=== PATIENT | female | born 1935 | race Caucasian/White ===

== ENCOUNTER 2022-11-09 14:17 | Inpatient (IN) | payer MEDICARE, OTHER ==
[~2022-11-09] VITALS: Ht 157.5 cm; Wt 52.2 kg
[2022-11-09] MEDS ORDERED: IV NORMAL SALINE 500 ML BAG IV ONE (14:30)
--- NOTE | 2022-11-09 14:42 | NUR ---
Noted pt has healing scabs on Rt ankle, and multiple ecchymosis on RUE, LUE lymphedema.
[2022-11-09 15:00] LABS: HEMATOCRIT 37.1 % (31.2-41.9); MEAN CORPUSCULAR HEMOGLOBIN 30.8 uug (24.7-32.8); MEAN CORPUSCULAR VOLUME 97.6 fL (75.5-95.3); PLATELET COUNT (AUTO) 195 K/uL (179-408)
[2022-11-09 15:10] LABS: CARBON DIOXIDE 30 mmol/L (21-32); CHLORIDE 102 mmol/L (98-107); CREATININE 1.9 mg/dL (0.6-1.3); GLUCOSE 93 mg/dL (74-106); POTASSIUM 3.9 mmol/L (3.5-5.1); UREA NITROGEN, BLOOD 39 mg/dL (7-18)
--- NOTE | 2022-11-09 15:22 | NUR ---
Received call from lab, lactic acid = 3.0. made aware.
[2022-11-09 15:23] LABS: ALANINE AMINOTRANSFERASE 18 U/L (14-59); ALKALINE PHOSPHATASE 99 U/L (50-136); ASPARTATE AMINOTRANSFERASE 18 U/L (15-37); BILIRUBIN,DIRECT 0.4 mg/dL (0.0-0.2); BILIRUBIN,TOTAL 0.8 mg/dL (0.2-1.0); TOTAL PROTEIN, SERUM 6.2 g/dL (6.4-8.2)
[2022-11-09] MEDS ORDERED: CEFTRIAXONE 1 G in IV DEXTROSE 5% 50 ML IV ONE (15:30)
[2022-11-09] MEDS ORDERED: IV NORMAL SALINE 1000 ML BAG IV ONE (15:30)
[2022-11-09] MEDS ORDERED: CEFTRIAXONE /D5W 50ML IVPB **ER PYXIS IV ONE (15:35)
--- NOTE | 2022-11-09 17:25 | NUR ---
Dr Modi insert a Rapid Rhino to Lt nares, pt tolorated moderatly.
[2022-11-09] MEDS ORDERED: ONDANSETRON 4 MG/2 ML VIAL ONE (17:26)
[2022-11-09] MEDS ORDERED: ONDANSETRON 4 MG/2 ML VIAL IV ONE (17:30)
--- NOTE | 2022-11-09 17:33 | NUR ---
Reposition for comfort, pt's son at the bedside.
[2022-11-09 19:20] LABS: *BILIRUBIN,URIN NEGATIVE (NEGATIVE); *BLOOD, URINE NEGATIVE (NEGATIVE); *CLARITY,URINE CLEAR (CLEAR); *COLOR,URINE YELLOW (YELLOW); *KETONES,URINE NEGATIVE (NEGATIVE); *UROBILINOGEN,URINE 0.2 E.U./dl (NORMAL); LEUKOCYTE ESTERASE ,URINE NEGATIVE (NEGATIVE); NITRITE, URINE NEGATIVE (NEGATIVE); PH,URINE 5.5 (5.0-8.0); UGLUCOSE NEGATIVE (NEGATIVE)
--- NOTE | 2022-11-09 20:45 | NUR ---
Report given to Jayesh GODFREY.
[2022-11-09] MEDS ORDERED: ONDANSETRON 4 MG/2 ML VIAL IV PRN (21:15)
--- NOTE | 2022-11-09 21:19 | NUR ---
Patient taken to third floor room 323 via gurney accompanied by son and with personal belongings. Patient in stable condition, no signs of distress.
[2022-11-09] MEDS ORDERED: TEMAZEPAM 7.5 MG CAPSULE PO PRN (21:30)
[2022-11-09] MEDS ORDERED: LIDO30AD10 TP (22:24)
[2022-11-09] MEDS ORDERED: IPRA42SP NS (22:24)
[2022-11-09] MEDS ORDERED: DENO60DI SUBCUT (22:24)
[2022-11-09] MEDS ORDERED: DENO60DI SQ (22:24)
[2022-11-09] MEDS ORDERED: POTA10TA10 PO ×2 (22:24)
[2022-11-09] MEDS ORDERED: LEVO112T2 PO (22:24)
[2022-11-09] MEDS ORDERED: FAMO20TA8 PO (22:24)
[2022-11-09] MEDS ORDERED: UMEC62.5 IH (22:24)
[2022-11-09] MEDS ORDERED: BENZ1LOZ58 PO (22:24)
[2022-11-09] MEDS ORDERED: LOSA25TA27 PO (22:24)
[2022-11-09] MEDS ORDERED: DOCU-141 PO (22:24)
[2022-11-09] MEDS ORDERED: TORS20TA3 PO ×2 (22:24)
[2022-11-09] MEDS ORDERED: PARI1CAP PO (22:24)
[2022-11-09] MEDS ORDERED: DICLOFENAC 1% TOP (22:24)
[2022-11-09] MEDS ORDERED: tylenol pm PO (22:24)
[2022-11-09] MEDS ORDERED: ROSU10CA PO (22:28)
[2022-11-09] MEDS ORDERED: ACET-2154 PO (22:28)
[2022-11-09] MEDS ORDERED: LORA-258 PO (22:28)
[2022-11-09] MEDS ORDERED: BISA10SU61 RC (22:28)
[2022-11-10] VITALS: BP 130/54
[2022-11-10] MEDS ORDERED: TRAM50TA2 PO (00:26)
[2022-11-10] MEDS ORDERED: TRAMADOL HCL 50 MG TABLET PO PRN ×2 (00:30→09:37)
--- NOTE | 2022-11-10 00:42 | NUR ---
ADMITTED TO ROOM 323; ACCOMPANIED BY SON; WOUND SURVEILLANCE DONE AND WOUND CARE DONE;; PT PRESENTLY RESISTANT TO PLAN OF CARE; PT APPEARS ANXIOUS MOST OF THE TIME; PATIENT REFUSING PUREWICK AND REPOSITIONING; EDUCATED THE NEED FOR TURNING;
[2022-11-10] MEDS: ACETAMINOPHEN 325 MG TABLET PO PRN (00:47)
[2022-11-10] MEDS: PANTOPRAZOLE SODIUM 40 MG TABLET.DR PO SCH (06:54)
--- NOTE | 2022-11-10 07:30 | NUR ---
Sleeping, appears comfortable. Bed alarm on.
[2022-11-10 07:35] LABS: HEMATOCRIT 35.4 % (31.2-41.9); MEAN CORPUSCULAR HEMOGLOBIN 30.9 uug (24.7-32.8); MEAN CORPUSCULAR VOLUME 97.2 fL (75.5-95.3); PLATELET COUNT (AUTO) 156 K/uL (179-408)
[2022-11-10] MEDS ORDERED: LORAZEPAM 0.5 MG TABLET PO PRN (08:00)
[2022-11-10 08:11] LABS: ALANINE AMINOTRANSFERASE 19 U/L (14-59); ALKALINE PHOSPHATASE 88 U/L (50-136); ASPARTATE AMINOTRANSFERASE 31 U/L (15-37); BILIRUBIN,TOTAL 0.6 mg/dL (0.2-1.0); CARBON DIOXIDE 27 mmol/L (21-32); CHLORIDE 103 mmol/L (98-107); CHOLESTEROL 95 mg/dL (<200); CREATININE 1.9 mg/dL (0.6-1.3); GLUCOSE 66 mg/dL (74-106); HDL CHOLESTEROL 54 mg/dL (40-60); MAGNESIUM 2.2 mg/dL (1.8-2.4); PHOSPHOROUS 4.3 mg/dL (2.5-4.9); POTASSIUM 3.9 mmol/L (3.5-5.1); TOTAL PROTEIN, SERUM 5.8 g/dL (6.4-8.2); TRIGLYCERIDES 128 MG/DL (30-150); UREA NITROGEN, BLOOD 50 mg/dL (7-18)
[2022-11-10 08:27] LABS: IRON, SERUM 63 ug/dL (50-175)
[2022-11-10] MEDS ORDERED: METOPROLOL TARTRATE 25 MG TABLET PO SCH (09:00)
[2022-11-10] MEDS ORDERED: BISACODYL 10 MG SUPP.RECT RC PRN (09:00)
[2022-11-10] MEDS: LEVOTHYROXINE SODIUM 112 MCG TABLET PO SCH ×2 (09:00→10:21)
[2022-11-10 09:12] LABS: THYROID STIMULATING HORMONE 4.947 mIU/mL (0.358-3.740)
--- NOTE | 2022-11-10 10:00 | NUR ---
PT eval, unsteady, mod to max assist.
[2022-11-10] MEDS: DOCUSATE SODIUM 100 MG CAPSULE PO SCH ×2 (10:14→17:28)
[2022-11-10] MEDS: METOPROLOL TARTRATE 50 MG TABLET PO SCH ×2 (10:15→21:02)
[2022-11-10 11:41] VITALS: BP 104/59
--- NOTE | 2022-11-10 17:14 | NUR ---
Son at bedside, discussed plan of care. Dr. Beltran seen and examined patient, wound care done to left leg, dressing applied.
[2022-11-10] MEDS: LIDOCAINE 5% PATCH TD SCH (17:28)
--- NOTE | 2022-11-10 19:45 | NUR ---
Patient alert oriented, no sob no chest pain, tele monitor Atrial Flutter 110, no complain of pain at this time, call light within reach, v/s stable, cont to monitor.
[2022-11-10 20:20] VITALS: BP 119/55
[2022-11-11 00:29] VITALS: BP 103/63
[2022-11-11 04:29] VITALS: BP 114/67
--- NOTE | 2022-11-11 04:33 | NUR ---
Patient asleep but arousable, no further complain of pain at this time, no sob no chest pain, A flutter on tele, kept clean dry and comfortable. cont to monitor.
[2022-11-11] MEDS: LEVOTHYROXINE SODIUM 112 MCG TABLET PO SCH ×2 (05:57→06:32)
[2022-11-11] MEDS: PANTOPRAZOLE SODIUM 40 MG TABLET.DR PO SCH ×2 (05:57→06:32)
--- NOTE | 2022-11-11 05:57 | NUR ---
Patient refused all po meds, refused lab works, explained the risk and benefit, still refused.
[2022-11-11 06:46] LABS: HEMATOCRIT 33.8 % (31.2-41.9); MEAN CORPUSCULAR HEMOGLOBIN 30.7 uug (24.7-32.8); MEAN CORPUSCULAR VOLUME 98.7 fL (75.5-95.3); PLATELET COUNT (AUTO) 172 K/uL (179-408)
[2022-11-11 07:46] LABS: CARBON DIOXIDE 28 mmol/L (21-32); CHLORIDE 104 mmol/L (98-107); CREATININE 1.9 mg/dL (0.6-1.3); GLUCOSE 72 mg/dL (74-106); MAGNESIUM 2.3 mg/dL (1.8-2.4); PHOSPHOROUS 4.5 mg/dL (2.5-4.9); POTASSIUM 4.1 mmol/L (3.5-5.1); UREA NITROGEN, BLOOD 47 mg/dL (7-18)
--- NOTE | 2022-11-11 08:00 | NUR ---
Anxious, angry, reports of abdominal pain and nausea. Zofran IV given. Dr. Chamberlain informed with orders for KUB.
[2022-11-11] MEDS: DOCUSATE SODIUM 100 MG CAPSULE PO SCH ×2 (09:47→18:00)
[2022-11-11] MEDS: METOPROLOL TARTRATE 50 MG TABLET PO SCH ×2 (09:48→22:32)
[2022-11-11] MEDS: LIDOCAINE 5% PATCH TD SCH (09:48)
[2022-11-11] MEDS: THERAHONEY GEL 1.5 OZ TUBE TOP SCH (10:18)
[2022-11-11 11:28] VITALS: BP 132/73
--- NOTE | 2022-11-11 14:00 | NUR ---
Wound care done RLE as ordered, dressing kept dry and clean.
[2022-11-11] MEDS: MORPHINE SULFATE 2 MG/1 ML DISP.SYRIN IV PRN ×2 (15:46→23:04)
--- NOTE | 2022-11-11 15:46 | NUR ---
Still reports of abdominal pain. Morphine IV given as ordered with relief.
[2022-11-11 15:52] VITALS: BP 124/70
--- NOTE | 2022-11-11 18:56 | NUR ---
CT Abdomen done. Prefers liquids only for meal. Ensure given.
--- NOTE | 2022-11-11 21:00 | NUR ---
Patient in bed alert oriented, no sob no chest pain, tele monitor Atrial flutter, no complain of pain at this time, patient ate soup, kept clean and dry, cont to monitor.
--- NOTE | 2022-11-12 | NUR ---
Patient complain of abdominal pain, 8/10 given Morphine 2mg iv push slowly, with effective results, no sob no chest pain, tele Atrial flutter with BBB, cont to monitor.
[2022-11-12 00:30] VITALS: BP 120/66
--- NOTE | 2022-11-12 06:00 | NUR ---
Patient alert oriented, no sob no chest pain, patient refused lab works, cries and do not want to be poke with the needle, no further complain of abdominal pain, no nausea no vomiting noted. cont to monitor.
[2022-11-12] MEDS: PANTOPRAZOLE SODIUM 40 MG TABLET.DR PO SCH (06:02)
[2022-11-12] MEDS: LEVOTHYROXINE SODIUM 112 MCG TABLET PO SCH (06:02)
--- NOTE | 2022-11-12 08:00 | NUR ---
Pt is in no acute distress. Call light is within reach. Pt denies any c/o abd pain. Pt has good appetite for breakfast. Pt independent on feeding herself.
[2022-11-12] MEDS: DOCUSATE SODIUM 100 MG CAPSULE PO SCH ×2 (08:12→15:59)
[2022-11-12] MEDS: THERAHONEY GEL 1.5 OZ TUBE TOP SCH (08:12)
[2022-11-12] MEDS: LIDOCAINE 5% PATCH TD SCH (08:12)
[2022-11-12] MEDS: ENSURE WITH FIBER 237 ML LIQUID (CHOCOLATE) PO SCH ×3 (08:13→16:00)
[2022-11-12] MEDS: METOPROLOL TARTRATE 50 MG TABLET PO SCH (08:27)
[2022-11-12 12:12] VITALS: BP 122/64
--- NOTE | 2022-11-12 13:00 | NUR ---
Dressing changed on left ng as ordered. Noted wound has serous drainage. No odor noted. Call light is within reach.
[2022-11-12] MEDS: ACETAMINOPHEN 325 MG TABLET PO PRN (15:59)
[2022-11-12 16:27] VITALS: BP 134/74
[2022-11-12] MEDS ORDERED: BISA10SU12 RC (16:59)
[2022-11-12] MEDS ORDERED: METO50TA16 PO (16:59)
[2022-11-12] MEDS ORDERED: MENT113O TOP (16:59)
[2022-11-12] MEDS ORDERED: Lactose-Free Food/Fiber PO (16:59)
[2022-11-12] MEDS ORDERED: TEMA7.5C PO (16:59)
[2022-11-12] MEDS ORDERED: ACET325T53 PO (16:59)
[2022-11-12] MEDS ORDERED: PANT40TA49 PO (16:59)
--- NOTE | 2022-11-12 18:12 | NUR ---
Dr martinez spoke with son KEYSHAWN pt approved for ARU per giovanni( aru program coordinator for residence life) JKulwinder son ok with plan on placing his mom to ARU. Discharge instructions given to patient. Pt verbalized understanding. Pt refused to have her wound left leg ng taken pictures off. Noted bruising on right arm. Old scar on sacrum noted. Pt refused to have any pictures taken. Explained to pt that we need to take pictures per protocol. However pt continues to refuse to have any pictures taken.
== END 2022-11-12 18:16 | DRG 682 ==
LOC: ER 14:17 → TELE3 20:03
PROVIDERS: ADMIT Internal Medicine; ATTEND Internal Medicine
PROC: 2Y41X5Z Packing of Nasal Region using Packing Material (ICD-10-PCS; principal; 2022-11-09)
DX: N17.0 Acute kidney failure with tubular necrosis (principal); I50.33 Acute on chronic diastolic (congestive) heart failure; E44.0 Moderate protein-calorie malnutrition; I48.20 Chronic atrial fibrillation, unspecified; I13.0 Hypertensive heart and chronic kidney disease with heart failure and stage 1 through stage 4 chronic kidney disease, or unspecified chronic kidney disease; I69.351 Hemiplegia and hemiparesis following cerebral infarction affecting right dominant side; D69.2 Other nonthrombocytopenic purpura; D64.9 Anemia, unspecified; E03.9 Hypothyroidism, unspecified; D75.89 Other specified diseases of blood and blood-forming organs; E78.5 Hyperlipidemia, unspecified; F41.0 Panic disorder [episodic paroxysmal anxiety]; I07.1 Rheumatic tricuspid insufficiency; I25.10 Atherosclerotic heart disease of native coronary artery without angina pectoris; I25.2 Old myocardial infarction; N18.30 Chronic kidney disease, stage 3 unspecified; Z85.3 Personal history of malignant neoplasm of breast; Z95.0 Presence of cardiac pacemaker; Z95.2 Presence of prosthetic heart valve; Z79.01 Long term (current) use of anticoagulants; Z66 Do not resuscitate; Z86.711 Personal history of pulmonary embolism; Z87.891 Personal history of nicotine dependence; Z88.2 Allergy status to sulfonamides; Z90.49 Acquired absence of other specified parts of digestive tract; Z20.822 Contact with and (suspected) exposure to COVID-19; R53.1 Weakness; R04.0 Epistaxis; F41.9 Anxiety disorder, unspecified; F01.50 Vascular dementia, unspecified severity, without behavioral disturbance, psychotic disturbance, mood disturbance, and anxiety; J44.9 Chronic obstructive pulmonary disease, unspecified; S81.812A Laceration without foreign body, left lower leg, initial encounter; X58.XXXA Exposure to other specified factors, initial encounter; Y93.9 Activity, unspecified; Y92.009 Unspecified place in unspecified non-institutional (private) residence as the place of occurrence of the external cause; M19.90 Unspecified osteoarthritis, unspecified site; K59.00 Constipation, unspecified; K83.8 Other specified diseases of biliary tract; M89.8X8 Other specified disorders of bone, other site; G89.29 Other chronic pain; I27.20 Pulmonary hypertension, unspecified; I73.9 Peripheral vascular disease, unspecified
CPT/HCPCS: 30901; 36415; 71045; 74018; 83550; 83605; 83735; 84100; 84443; 84484; 85025; 85730; 86850; 86900; 86901; 87040; 93005; 93307; A4663; A6213; G0378; J0696; J2270; J2405; J7040

== ENCOUNTER 2022-11-12 19:59 | Inpatient (IN) | payer MEDICARE, OTHER ==
[~2022-11-12] VITALS: Ht 157.5 cm; Wt 52.2 kg
[~2022-11-12 19:59] MED LIST: ACET-2154 PO; ACET325T53 PO; BENZ1LOZ58 PO; BISA10SU12 RC; BISA10SU61 RC; DENO60DI SUBCUT; DICLOFENAC 1% TOP; DOCU-141 PO; FAMO20TA8 PO; IPRA42SP NS; LEVO112T2 PO; LIDO30AD10 TP; LORA-258 PO; LOSA25TA27 PO; Lactose-Free Food/Fiber PO; MENT113O TOP; METO50TA16 PO; PANT40TA49 PO; PARI1CAP PO; POTA10TA10 PO; ROSU10CA PO; TEMA7.5C PO; TORS20TA3 PO; TRAM50TA2 PO; UMEC62.5 IH; tylenol pm PO
--- NOTE | 2022-11-12 20:00 | NUR ---
PATIENT ADMITTED TO REHAB. A/O X3. C/O NAUSEA. WAITING FOR ADMISSION ORDERS. VS WNL. PATIENT DENIES ANY PAIN. NO RESP. DISTRESS NOTED. LEFT ARM SWOLLEN, LYMPHEDEMA, ELEVATED ON PILLOWS. BED ALARM ON. CALL LIGHT IN REACH. ALL NEEDS ATTENDED. WILL CONTINUE TO MONITOR AND ASSESS.
[2022-11-12 20:15] VITALS: BP 135/70
[2022-11-12] MEDS ORDERED: BISACODYL 10 MG SUPP.RECT RC PRN (20:45)
[2022-11-12] MEDS: ONDANSETRON 4 MG/2 ML VIAL IV PRN (20:54)
[2022-11-12] MEDS ORDERED: REMEDY ESSENTIAL ZINC PASTE 113 GM TOP PRN (21:30)
[2022-11-12] MEDS: METOPROLOL TARTRATE 50 MG TABLET PO SCH (21:33)
[2022-11-12] MEDS: TRAMADOL HCL 50 MG TABLET PO PRN (22:32)
[2022-11-13] MEDS: TEMAZEPAM 7.5 MG CAPSULE PO PRN (00:01)
--- NOTE | 2022-11-13 05:35 | NUR ---
PATIENT ASLEEP IN BED. PATIENT REFUSED TO BE WOKEN UP FOR MORNING VITALS. COOLING ROOM ATTENDANT NOTIFIED. PATIENT IS ASLEEP. NO RESP. DISTRESS NOTED. BED ALARM ON. CALL LIGHT IN REACH. ALL NEEDS ATTENDED, WILL CONTINUE TO MONITOR AND ASSESS. Addendum: 11/13/22 at 0841 by NICOLE ALANIZ RN 729-Upon routine shift exchange rounds, rec'd in bed, no acute respiratory distress noted; patient asleep, wakes up on verbal commands, denies any pain or discomfort. Encouraged to use call light for help every time help is needed. Safety measures in place.
[2022-11-13] MEDS ORDERED: PANTOPRAZOLE SODIUM 40 MG TABLET.DR PO SCH ×2 (07:00)
[2022-11-13 07:45] VITALS: BP 149/84
[2022-11-13] MEDS: LEVOTHYROXINE SODIUM 112 MCG TABLET PO SCH (08:25)
[2022-11-13] MEDS: ENSURE WITH FIBER 237 ML LIQUID (CHOCOLATE) PO SCH ×3 (08:25→17:14)
[2022-11-13] MEDS: DOCUSATE SODIUM 100 MG CAPSULE PO SCH ×2 (08:25→16:23)
[2022-11-13] MEDS: LIDOCAINE 5% PATCH TD SCH (08:26)
[2022-11-13] MEDS: METOPROLOL TARTRATE 50 MG TABLET PO SCH ×2 (08:26→20:28)
[2022-11-13] MEDS ORDERED: CALMOSEPTINE 113 GM OINTMENT TOP SCH (09:00)
[2022-11-13] MEDS ORDERED: PARICALCITOL PO SCH (09:00)
[2022-11-13] MEDS: FAMOTIDINE 20 MG TABLET PO SCH ×2 (09:15→16:23)
--- NOTE | 2022-11-13 09:38 | NUR ---
0900-Scheduled medication administered and taken well, oral fluids offered as mauro. patient denies any discomfort. Lidocaine applied to RT shoulder for pain management. No s/s of hypo/HTN noted
[2022-11-13] MEDS: ONDANSETRON 4 MG/2 ML VIAL IV PRN ×2 (12:49→20:44)
--- NOTE | 2022-11-13 13:29 | NUR ---
WOUND CARE CONSULT: PT PRESENTS WITH LEFT LOWER LEG WOUND AND SACRAL SCARRING WITH VERY BONY AREA, PRESENT ON ADMISSION. DR LORD CALLED FOR DPM CONSULT. DISCUSSED SKIN PROTECTION AND WOUND CARE RECOMMENDATIONS WITH NURSING STAFF. IN AGREEMENT WITH PLAN OF CARE. Addendum: 11/13/22 at 1330 by LASHAY VYAS RN Amended: Links added.
[2022-11-13] MEDS: THERAHONEY GEL 1.5 OZ TUBE TOP SCH (14:20)
[2022-11-13 16:26] VITALS: BP 112/50
[2022-11-13 20:00] VITALS: BP 114/59
[2022-11-14 04:00] VITALS: BP 108/79
[2022-11-14 07:18] LABS: HEMATOCRIT 38.3 % (31.2-41.9); MEAN CORPUSCULAR HEMOGLOBIN 31.1 uug (24.7-32.8); MEAN CORPUSCULAR VOLUME 99.7 fL (75.5-95.3); PLATELET COUNT (AUTO) 187 K/uL (179-408)
[2022-11-14 07:54] LABS: ALANINE AMINOTRANSFERASE 15 U/L (14-59); ALKALINE PHOSPHATASE 87 U/L (50-136); ASPARTATE AMINOTRANSFERASE 20 U/L (15-37); BILIRUBIN,TOTAL 0.8 mg/dL (0.2-1.0); CARBON DIOXIDE 27 mmol/L (21-32); CHLORIDE 102 mmol/L (98-107); CREATININE 1.7 mg/dL (0.6-1.3); GLUCOSE 76 mg/dL (74-106); MAGNESIUM 2.3 mg/dL (1.8-2.4); POTASSIUM 4.3 mmol/L (3.5-5.1); UREA NITROGEN, BLOOD 36 mg/dL (7-18)
[2022-11-14 08:00] VITALS: BP 110/75
[2022-11-14] MEDS: ENSURE WITH FIBER 237 ML LIQUID (CHOCOLATE) PO SCH ×3 (08:24→17:05)
[2022-11-14] MEDS: METOPROLOL TARTRATE 50 MG TABLET PO SCH ×2 (08:27→20:52)
[2022-11-14] MEDS: FAMOTIDINE 20 MG TABLET PO SCH ×2 (08:28→16:19)
[2022-11-14] MEDS: LIDOCAINE 5% PATCH TD SCH (08:28)
[2022-11-14] MEDS: DOCUSATE SODIUM 100 MG CAPSULE PO SCH ×2 (08:28→16:19)
[2022-11-14] MEDS: THERAHONEY GEL 1.5 OZ TUBE TOP SCH (08:37)
[2022-11-14] MEDS: LEVOTHYROXINE SODIUM 112 MCG TABLET PO SCH (08:37)
--- NOTE | 2022-11-14 09:10 | NUR ---
0730-UPON SHIFT EXCHANGE ROUTINE ROUNDS, PATIENT IN BED, AWAKE, WATCHING TV, ON R/A, NO RESPIRATORY DISTRESS NOTED. PATIENT DENIES PAIN, CALL LIGHT AT REACH. 0900-SCHEDULED MEDS ADMINISTERED, NO ASE NOTED; REPOSITIONED FOR COMFORT AND PRESSURE RELIEF.
[2022-11-14] MEDS: TRAMADOL HCL 50 MG TABLET PO PRN (10:26)
--- NOTE | 2022-11-14 12:29 | NUR ---
SPOKE TO TASNEEM GUO, (SON) REGARDING PERICALCITOL/ZEMPLER MEDICATION NOT AVAILABLE IN THE PHARMACY. PER TASNEEM "ALL HER MEDICATION IS IN HER APARTMENT IN [place]" AND HE LIVES IN , HE WILL TRY TO GET SOMEONE TO GO TO THE APARTMENT AND BRING TO THE HOSPITAL OR ELSE HE IS PLANNING TO VISIT HIS MOTHER OVER THE WEEKEND AND HE'LL BRING IT. Addendum: 11/14/22 at 1830 by NICOLE ALANIZ RN SPOKE TO TASNEEM GUO, (SON) REGARDING PERICALCITOL/ZEMPLER MEDICATION NOT AVAILABLE IN THE PHARMACY. PER TASNEEM "ALL HER MEDICATIONS ARE IN HER APARTMENT IN [place] AND I LIVE IN , I WILL TRY TO GET SOMEONE TO GO TO HER APARTMENT AND BRING MEDICATION TO THE HOSPITAL OR ELSE I AM PLANNING TO VISIT HER OVER THE WEEKEND WILL BRING IT" TASNEEM ALSO ADDED, " I WAS THERE THE OTHER DAY AND NO ONE MENTIONED ANYTHING ABOUT IT" REFERRING TO MEDICATION.
[2022-11-14 16:00] VITALS: BP 106/56
--- NOTE | 2022-11-14 18:24 | NUR ---
Patient was seen by internal controls specialist aSmi Skaggs DPM today and assesed patient's wound to her left ng area, per MD, "no infection is noted" and to continue with current treatment.
[2022-11-14 20:00] VITALS: BP 116/60
--- NOTE | 2022-11-15 03:57 | NUR ---
AAOx2-3 with some periods of confusion at times. Patient admitted for generalized weakness. HTN. Fall precautions maintain. Siderails up for safety. All needs attended. Tolerated po meds well. Will monitor patient well. VSS .
[2022-11-15 04:00] VITALS: BP 140/63
[2022-11-15 07:32] VITALS: BP 137/71
[2022-11-15] MEDS: LEVOTHYROXINE SODIUM 112 MCG TABLET PO SCH (09:00)
[2022-11-15] MEDS: DOCUSATE SODIUM 100 MG CAPSULE PO SCH ×2 (09:05→17:09)
[2022-11-15] MEDS: FAMOTIDINE 20 MG TABLET PO SCH ×2 (09:06→17:10)
[2022-11-15] MEDS: METOPROLOL TARTRATE 50 MG TABLET PO SCH ×2 (09:06→20:58)
[2022-11-15] MEDS: THERAHONEY GEL 1.5 OZ TUBE TOP SCH (09:07)
[2022-11-15] MEDS: ENSURE WITH FIBER 237 ML LIQUID (CHOCOLATE) PO SCH ×3 (09:07→17:10)
[2022-11-15] MEDS: LIDOCAINE 5% PATCH TD SCH (09:07)
[2022-11-15] MEDS: MAG HYDROX/AL HYDROX/SIMETH 30 ML LIQUID UDC PO PRN (10:16)
--- NOTE | 2022-11-15 12:52 | NUR ---
INDIVIDUALIZED PLAN OF CARE
--- NOTE | 2022-11-15 12:58 | NUR ---
INTERDISCIPLINARY TEAM CONFERENCE
[2022-11-15 13:42] LABS: *BILIRUBIN,URIN NEGATIVE (NEGATIVE); *BLOOD, URINE NEGATIVE (NEGATIVE); *CLARITY,URINE CLEAR (CLEAR); *COLOR,URINE YELLOW (YELLOW); *KETONES,URINE NEGATIVE (NEGATIVE); *UROBILINOGEN,URINE 0.2 E.U./dl (NORMAL); LEUKOCYTE ESTERASE ,URINE NEGATIVE (NEGATIVE); NITRITE, URINE NEGATIVE (NEGATIVE); PH,URINE 5.5 (5.0-8.0); UGLUCOSE NEGATIVE (NEGATIVE)
[2022-11-15 14:16] LABS: RBC,URINE NONE SEEN /HPF (0-3)
[2022-11-15 14:17] LABS: BACTERIA,URINE FEW /HPF (NONE SEEN); SQUAMOUS EPITHELIAL CELL,UR FEW /HPF (NONE SEEN); WBC,URINE 0-3 /HPF (0-3)
[2022-11-15 16:00] VITALS: BP 132/66
[2022-11-15] MEDS: ARGININE/GLUTAMINE/CALCIUM BMB 1 EACH POWD.PACK PO SCH (17:09)
--- NOTE | 2022-11-15 19:52 | NUR ---
RECEIVED REPORT FROM BEKAH MARTIN, JAN SHIFT. PATIENT IS ALERT & ORIENTED X2-3, WITH PERIODS OF FORGETFULNESS, AND SPEAKS BULGARIAN. VITAL SIGNS STABLE. PATIENT TOLERATES PO MEDICATIONS AND DIET WELL, ALTHOUGH PATIENT CONTINUES TO EAT VERY LITTLE. PATIENT PARTICIPATES WITH PHYSICAL AND OCCUPATIONAL THERAPY SCHEDULED. PATIENT HAD COMPLAINT OF PAIN. RN PROVIDED MEDICATIONS ORDERED BY MD. PATIENT EXPRESSED RELIEF. PATIENT EXPRESS THE WANT TO NAP MORE DURING SHIFT. RN NOTED AND ENCOURAGED PATIENT TO PARTICIPATE WITH PHYSICAL THERAPY. ALL NEEDS ATTENDED TO AT THIS TIME. NO ACUTE DISTRESS NOTED. FALL PRECAUTIONS IN PLACE. ENDORSED CARE TO BEKAH CARTER, JAN SHIFT FOR CONTINUATION OF CARE.
[2022-11-15 20:00] VITALS: BP 110/49
[2022-11-15] MEDS: LORAZEPAM 0.5 MG TABLET PO PRN (20:00)
--- NOTE | 2022-11-15 23:00 | NUR ---
1910-AOx2 and the patient tolerates medications. The patient has no IV access. Fall precautions maintain. Call light within reach, two side rails up, wheels locked, bed alarm on. All needs attended. Will continue to monitor throughout the shift. 2300- The patient request for an extra pillow. Item is given to the patient. The patient has no complains of pain or sob. Will continue to monitor throughout the shift. 0500- The patient is resting comfortably. The patient has no complains of pain or sob. Will continue to monitor throughout the shift.
[2022-11-16 04:00] VITALS: BP 121/75
[2022-11-16] MEDS: LEVOTHYROXINE SODIUM 112 MCG TABLET PO SCH (06:35)
[2022-11-16 07:59] VITALS: BP 149/86
[2022-11-16] MEDS: DOCUSATE SODIUM 100 MG CAPSULE PO SCH ×2 (09:29→16:58)
[2022-11-16] MEDS: METOPROLOL TARTRATE 50 MG TABLET PO SCH ×2 (09:29→20:29)
[2022-11-16] MEDS: THERAHONEY GEL 1.5 OZ TUBE TOP SCH (09:30)
[2022-11-16] MEDS: FAMOTIDINE 20 MG TABLET PO SCH ×2 (09:30→16:59)
[2022-11-16] MEDS: LIDOCAINE 5% PATCH TD SCH (09:30)
[2022-11-16] MEDS: ARGININE/GLUTAMINE/CALCIUM BMB 1 EACH POWD.PACK PO SCH ×3 (09:31→17:00)
[2022-11-16] MEDS: ENSURE WITH FIBER 237 ML LIQUID (CHOCOLATE) PO SCH ×3 (09:31→16:58)
[2022-11-16] MEDS: ACETAMINOPHEN 325 MG TABLET PO PRN (15:44)
[2022-11-16 15:52] VITALS: BP 100/82
--- NOTE | 2022-11-16 19:19 | NUR ---
RECEIVED REPORT FROM BEKAH RODRIGUEZ, JAN SHIFT. PATIENT IS ALERT & ORIENTED X2-3, WITH PERIODS OF FORGETFULNESS, AND SPEAKS TELUGU. VITAL SIGNS STABLE. PATIENT TOLERATES PO MEDICATIONS AND DIET WELL, ALTHOUGH PATIENT CONTINUES TO EAT VERY LITTLE. PATIENT PARTICIPATES WITH PHYSICAL AND OCCUPATIONAL THERAPY SCHEDULED. PATIENT HAD COMPLAINT OF PAIN. RN PROVIDED MEDICATIONS ORDERED BY MD. PATIENT EXPRESSED RELIEF. PATIENT EXPRESS THE WANT TO NAP MORE DURING SHIFT. RN NOTED AND ENCOURAGED PATIENT TO PARTICIPATE WITH PHYSICAL THERAPY. ALL NEEDS ATTENDED TO AT THIS TIME. NO ACUTE DISTRESS NOTED. FALL PRECAUTIONS IN PLACE. ENDORSED CARE TO BEKAH CARTER, JAN SHIFT FOR CONTINUATION OF CARE.
[2022-11-16 20:00] VITALS: BP 104/43
--- NOTE | 2022-11-16 20:30 | NUR ---
NSG: Received patient lying in bed. alert and oriented x3 with some periods of confusion at times. Patient admitted for generalized weakness. HTN.Fall precautions maintain. Side rails up for safety. held metoprolol po due to low blood pressure. call light w/in reach. .
[2022-11-16] MEDS: LORAZEPAM 0.5 MG TABLET PO PRN (23:37)
--- NOTE | 2022-11-16 23:37 | NUR ---
nsg: patient unable to sleep. ativan 0.5 mg prn po given per patient requested.
--- NOTE | 2022-11-17 | NUR ---
NSG: PATIENT IS RESTING IN BED COMFORTABLY. ASSISTED WITH ADL'S. NO C/O PAIN OR DISCOMFORT AT THIS TIME. CALL LIGHT W/IN REACH.
[2022-11-17 04:00] VITALS: BP 110/58
--- NOTE | 2022-11-17 06:05 | NUR ---
NSG: Remain calm and cooperative. slept will through the night. assisted with adl's. good maria elena care provided. call light w/in reach.
[2022-11-17] MEDS: LEVOTHYROXINE SODIUM 112 MCG TABLET PO SCH (06:10)
[2022-11-17 07:57] VITALS: BP 142/88
[2022-11-17] MEDS: ARGININE/GLUTAMINE/CALCIUM BMB 1 EACH POWD.PACK PO SCH ×2 (09:00→17:00)
[2022-11-17] MEDS: ENSURE WITH FIBER 237 ML LIQUID (CHOCOLATE) PO SCH ×3 (09:22→17:23)
[2022-11-17] MEDS: FAMOTIDINE 20 MG TABLET PO SCH ×2 (09:23→17:18)
[2022-11-17] MEDS: METOPROLOL TARTRATE 50 MG TABLET PO SCH ×2 (09:24→20:31)
[2022-11-17] MEDS: LIDOCAINE 5% PATCH TD SCH (09:24)
[2022-11-17] MEDS: DOCUSATE SODIUM 100 MG CAPSULE PO SCH ×2 (09:36→17:18)
[2022-11-17] MEDS: THERAHONEY GEL 1.5 OZ TUBE TOP SCH (09:40)
[2022-11-17] MEDS: MAG HYDROX/AL HYDROX/SIMETH 30 ML LIQUID UDC PO PRN ×2 (11:24→18:20)
[2022-11-17 16:22] VITALS: BP 139/85
--- NOTE | 2022-11-17 19:38 | NUR ---
RECEIVED REPORT FROM BEKAH RODRIGUEZ, JAN SHIFT. PATIENT IS ALERT & ORIENTED X2-3, WITH PERIODS OF FORGETFULNESS, AND SPEAKS MALDIVIAN. VITAL SIGNS STABLE. PATIENT TOLERATES PO MEDICATIONS AND DIET WELL, ALTHOUGH PATIENT CONTINUES TO EAT VERY LITTLE. PATIENT PARTICIPATES WITH PHYSICAL AND OCCUPATIONAL THERAPY SCHEDULED. PATIENT HAD COMPLAINT OF PAIN. RN PROVIDED MEDICATIONS ORDERED BY MD. PATIENT EXPRESSED RELIEF. PATIENT EXPRESS THE WANT TO NAP MORE DURING SHIFT. RN REMOVED IV ON THE RIGHT ARM PER PATIENT REQUEST. CATHETER TIP INTACT. NOTED AND ENCOURAGED PATIENT TO PARTICIPATE WITH PHYSICAL THERAPY. ALL NEEDS ATTENDED TO AT THIS TIME. NO ACUTE DISTRESS NOTED. FALL PRECAUTIONS IN PLACE. ENDORSED CARE TO BEKAH CARTER, JAN SHIFT FOR CONTINUATION OF CARE.
[2022-11-17 20:23] VITALS: BP 112/47
[2022-11-17] MEDS: LORAZEPAM 0.5 MG TABLET PO PRN (20:30)
--- NOTE | 2022-11-17 23:00 | NUR ---
1905- The patient is AOx2 and the patient tolerates medications. The patient has no IV access. Fall precautions maintain. Call light within reach, two side rails up, wheels locked, bed alarm on. All needs attended. Will continue to monitor throughout the shift. 2200- The patient request for an extra blanket. Item is given to the patient. The patient has no complains of pain or sob. Will continue to monitor throughout the shift. 0400- The patient is resting comfortably and asleep. The patient has no complains of pain or sob. Will continue to monitor throughout the shift.
[2022-11-18 04:23] VITALS: BP 102/55
[2022-11-18] MEDS: LEVOTHYROXINE SODIUM 112 MCG TABLET PO SCH (06:32)
[2022-11-18 07:55] VITALS: BP 125/58
[2022-11-18] MEDS: METOPROLOL TARTRATE 50 MG TABLET PO SCH ×2 (08:32→20:56)
[2022-11-18] MEDS: FAMOTIDINE 20 MG TABLET PO SCH ×2 (08:32→16:19)
[2022-11-18] MEDS: DOCUSATE SODIUM 100 MG CAPSULE PO SCH ×2 (08:32→16:19)
[2022-11-18] MEDS: ARGININE/GLUTAMINE/CALCIUM BMB 1 EACH POWD.PACK PO SCH ×2 (08:33→17:08)
[2022-11-18] MEDS: ENSURE WITH FIBER 237 ML LIQUID (CHOCOLATE) PO SCH ×3 (08:33→17:08)
[2022-11-18] MEDS: LIDOCAINE 5% PATCH TD SCH (08:49)
[2022-11-18] MEDS: THERAHONEY GEL 1.5 OZ TUBE TOP SCH (08:52)
--- NOTE | 2022-11-18 09:33 | NUR ---
0730-Upon shift exchanged routine rounds rec'd patient in bed, no apparent respiratory distress, on room air and mauro. well. Patient awake, alert and able to verbalize her needs and follow simple directions. Patient denies pain at this time, safety measures in place, call light within reach and encouraged to use it every time help is needed. 0900-Scheduled medication administered, no ASE noted, patient swallows pills whole, no swallowing problems observed. Oral fluids taken well, assisted patient to set up her meal tray, patient able to feed herself. Patient denies GI discomfort, no N/V noted.
[2022-11-18 16:10] VITALS: BP 128/53
--- NOTE | 2022-11-18 17:33 | NUR ---
Left ng wound treatment done, affected area healing well, no bleeding or drainage noted. Patient tolerated treatment well, denies pain. Care provided at routine intervals and PRN. All needs attended well and met.
[2022-11-18 20:25] VITALS: BP 144/76
--- NOTE | 2022-11-19 04:22 | NUR ---
Awake alert and oriented x2-3 Periods of forgetfulness. Easily redirected. All needs attended. Fall precautions maintained. Left ng dressing intact. Denies any pain nor any discomfort. Kept comfortable. Will monitor patient. Possible d/c on (11/25) Will monitor patient. In good spirits. Follows commands.
--- NOTE | 2022-11-19 06:16 | NUR ---
patient refused her 4am vital signs. Gets agitated and wanted to sleep.
[2022-11-19] MEDS: LEVOTHYROXINE SODIUM 112 MCG TABLET PO SCH (06:31)
--- NOTE | 2022-11-19 07:49 | NUR ---
patient requested ensure only once a day, patient has collection of ensures at her bedside.
[2022-11-19 07:55] VITALS: BP 129/75
[2022-11-19] MEDS: DOCUSATE SODIUM 100 MG CAPSULE PO SCH ×2 (09:03→17:12)
[2022-11-19] MEDS: FAMOTIDINE 20 MG TABLET PO SCH ×2 (09:03→17:12)
[2022-11-19] MEDS: METOPROLOL TARTRATE 50 MG TABLET PO SCH ×2 (09:03→21:00)
[2022-11-19] MEDS: LIDOCAINE 5% PATCH TD SCH (09:04)
[2022-11-19] MEDS: ARGININE/GLUTAMINE/CALCIUM BMB 1 EACH POWD.PACK PO SCH ×2 (09:04→17:12)
[2022-11-19] MEDS: ENSURE WITH FIBER 237 ML LIQUID (CHOCOLATE) PO SCH (09:04)
[2022-11-19] MEDS: THERAHONEY GEL 1.5 OZ TUBE TOP SCH (09:05)
[2022-11-19 11:35] VITALS: BP 129/75
[2022-11-19 16:39] VITALS: BP 112/53
--- NOTE | 2022-11-19 18:23 | NUR ---
no acute distress noted, no events noted during shift
[2022-11-19 20:00] VITALS: BP 94/72
[2022-11-19] MEDS: LORAZEPAM 0.5 MG TABLET PO PRN (23:48)
[2022-11-20] MEDS: LEVOTHYROXINE SODIUM 112 MCG TABLET PO SCH (06:34)
--- NOTE | 2022-11-20 07:51 | NUR ---
Patient is stable, a little bit irritated with morning care; but she was calm after ADL and took her morning pill. She is now in her bed resting.
--- NOTE | 2022-11-20 07:57 | NUR ---
Per patient's son he requested that we should not bother to take vitals, labs is his mother refuses and if she is sleeping.
[2022-11-20] MEDS: ARGININE/GLUTAMINE/CALCIUM BMB 1 EACH POWD.PACK PO SCH ×2 (09:00→17:00)
[2022-11-20] MEDS: LIDOCAINE 5% PATCH TD SCH (09:54)
[2022-11-20] MEDS: FAMOTIDINE 20 MG TABLET PO SCH ×2 (09:55→17:43)
[2022-11-20] MEDS: METOPROLOL TARTRATE 50 MG TABLET PO SCH ×2 (09:55→20:48)
[2022-11-20] MEDS: THERAHONEY GEL 1.5 OZ TUBE TOP SCH (09:56)
[2022-11-20] MEDS: DOCUSATE SODIUM 100 MG CAPSULE PO SCH ×2 (09:56→17:43)
[2022-11-20] MEDS: ENSURE WITH FIBER 237 ML LIQUID (CHOCOLATE) PO SCH (09:56)
[2022-11-20] MEDS: ACETAMINOPHEN 325 MG TABLET PO PRN (13:00)
[2022-11-20 16:32] VITALS: BP 124/67
--- NOTE | 2022-11-20 19:40 | NUR ---
RECEIVED REPORT FROM BEKAH MITTAL, JAN SHIFT. PATIENT IS ALERT & ORIENTED X2-3, WITH PERIODS OF FORGETFULNESS, AND SPEAKS JAPANESE. VITAL SIGNS STABLE. PATIENT TOLERATES PO MEDICATIONS AND DIET WELL, ALTHOUGH PATIENT CONTINUES TO EAT VERY LITTLE. PATIENT PARTICIPATES WITH PHYSICAL AND OCCUPATIONAL THERAPY SCHEDULED. PATIENT HAD COMPLAINT OF PAIN. RN PROVIDED MEDICATIONS ORDERED BY MD. PATIENT EXPRESSED RELIEF. PATIENT EXPRESS THE WANT TO NAP MORE DURING SHIFT. ALL NEEDS ATTENDED TO AT THIS TIME. NO ACUTE DISTRESS NOTED. FALL PRECAUTIONS IN PLACE. ENDORSED CARE TO LIANA QUINTANA, JAN SHIFT FOR CONTINUATION OF CARE.
[2022-11-20 20:00] VITALS: BP 135/64
[2022-11-21] MEDS: LORAZEPAM 0.5 MG TABLET PO PRN (01:52)
[2022-11-21 04:00] VITALS: BP 143/75
[2022-11-21] MEDS: ACETAMINOPHEN 325 MG TABLET PO PRN (04:14)
[2022-11-21] MEDS: LEVOTHYROXINE SODIUM 112 MCG TABLET PO SCH (06:18)
[2022-11-21 08:00] VITALS: BP 138/70
--- NOTE | 2022-11-21 08:02 | NUR ---
0730-Patient in bed at this time, A/Ox2-3, able to verbalize her needs and follow simple directions. Patient appears to be sleeping, wakes up on verbal commands. On R/A with no respiratory distress, patient denies any pain. Bed side table and needed items in place and all light within reach. Will continue to monitor.
[2022-11-21] MEDS: LIDOCAINE 5% PATCH TD SCH (08:48)
[2022-11-21] MEDS: FAMOTIDINE 20 MG TABLET PO SCH ×2 (08:49→16:23)
[2022-11-21] MEDS: DOCUSATE SODIUM 100 MG CAPSULE PO SCH ×2 (08:49→16:23)
[2022-11-21] MEDS: METOPROLOL TARTRATE 50 MG TABLET PO SCH ×2 (08:49→20:17)
[2022-11-21] MEDS: ARGININE/GLUTAMINE/CALCIUM BMB 1 EACH POWD.PACK PO SCH ×2 (08:49→17:27)
[2022-11-21] MEDS: THERAHONEY GEL 1.5 OZ TUBE TOP SCH (08:53)
[2022-11-21] MEDS: ENSURE WITH FIBER 237 ML LIQUID (CHOCOLATE) PO SCH (08:53)
[2022-11-21 16:00] VITALS: BP 126/71
--- NOTE | 2022-11-21 17:43 | NUR ---
Patient alert and oriented, verbalizes needs and follows directions. OOB daily with rehab for PT/OT skilled services as ordered mauro. well and patient actively able to participate in therapy. Assisted with ADLS and at all times through out the shift. Care provided at routine intervals/PRN. LT ng wound site treatment provided as ordered. Affected area with no bleeding or drainage noted, appears mauro be healing well. Routine medication administered as scheduled and ordered by MD during the shift. All needs anticipated and met. Safety precautions observed; routine rounds and frequent visual checks done.
--- NOTE | 2022-11-21 17:50 | NUR ---
Picture to left ng wound updated and placed in patient's chart.
--- NOTE | 2022-11-22 04:54 | NUR ---
AAOx1-2 Confused and disoriented. VSS. Fall precautions maintained. No acute distress noted. Repositioned for comfort. Turned to sides. Fall precautions maintained. Siderails up for safety.Refused 4am vital signs. No complaints presented during shift.
[2022-11-22] MEDS: LEVOTHYROXINE SODIUM 112 MCG TABLET PO SCH (06:32)
[2022-11-22] MEDS: ENSURE WITH FIBER 237 ML LIQUID (CHOCOLATE) PO SCH (07:47)
[2022-11-22] MEDS: FAMOTIDINE 20 MG TABLET PO SCH ×2 (08:16→16:45)
[2022-11-22] MEDS: DOCUSATE SODIUM 100 MG CAPSULE PO SCH ×2 (08:16→16:47)
[2022-11-22] MEDS: LIDOCAINE 5% PATCH TD SCH (08:17)
[2022-11-22] MEDS: METOPROLOL TARTRATE 50 MG TABLET PO SCH ×2 (08:22→21:00)
[2022-11-22] MEDS: THERAHONEY GEL 1.5 OZ TUBE TOP SCH (08:23)
[2022-11-22] MEDS: ARGININE/GLUTAMINE/CALCIUM BMB 1 EACH POWD.PACK PO SCH ×3 (09:48→16:46)
[2022-11-22] MEDS: ACETAMINOPHEN 325 MG TABLET PO PRN (10:34)
[2022-11-22 12:00] VITALS: BP 159/53
--- NOTE | 2022-11-22 14:23 | NUR ---
INTERDISCIPLINARY TEAM CONFERENCE
--- NOTE | 2022-11-22 14:51 | NUR ---
Called pt's son KEYSHAWN Mason back, , and left a message. Will try again in 1.5 -2.5 hours.
[2022-11-22 16:00] VITALS: BP 128/81
[2022-11-22 22:00] VITALS: BP 125/82
[2022-11-23] MEDS: LORAZEPAM 0.5 MG TABLET PO PRN ×2 (01:08→21:39)
[2022-11-23 04:00] VITALS: BP 154/79
[2022-11-23] MEDS: LEVOTHYROXINE SODIUM 112 MCG TABLET PO SCH (06:36)
[2022-11-23 06:37] LABS: HEMATOCRIT 34.3 % (31.2-41.9); MEAN CORPUSCULAR HEMOGLOBIN 30.8 uug (24.7-32.8); PLATELET COUNT (AUTO) 231 K/uL (179-408)
[2022-11-23 07:25] LABS: ALANINE AMINOTRANSFERASE 12 U/L (14-59); ALKALINE PHOSPHATASE 76 U/L (50-136); ASPARTATE AMINOTRANSFERASE 21 U/L (15-37); BILIRUBIN,TOTAL 0.9 mg/dL (0.2-1.0); CARBON DIOXIDE 26 mmol/L (21-32); CHLORIDE 101 mmol/L (98-107); CREATININE 1.6 mg/dL (0.6-1.3); GLUCOSE 77 mg/dL (74-106); PHOSPHOROUS 4.2 mg/dL (2.5-4.9); TOTAL PROTEIN, SERUM 5.7 g/dL (6.4-8.2); UREA NITROGEN, BLOOD 26 mg/dL (7-18)
[2022-11-23] MEDS: ENSURE WITH FIBER 237 ML LIQUID (CHOCOLATE) PO SCH (07:28)
--- NOTE | 2022-11-23 07:30 | NUR ---
REPORT GIVEN TO BEKAH NAVARRO
[2022-11-23 07:42] VITALS: BP 122/79
[2022-11-23] MEDS: ARGININE/GLUTAMINE/CALCIUM BMB 1 EACH POWD.PACK PO SCH ×2 (08:10→17:00)
[2022-11-23] MEDS: DOCUSATE SODIUM 100 MG CAPSULE PO SCH ×2 (08:10→17:00)
[2022-11-23] MEDS: LIDOCAINE 5% PATCH TD SCH (08:10)
[2022-11-23] MEDS: FAMOTIDINE 20 MG TABLET PO SCH ×2 (08:10→17:36)
[2022-11-23] MEDS: THERAHONEY GEL 1.5 OZ TUBE TOP SCH (08:11)
[2022-11-23] MEDS: METOPROLOL TARTRATE 50 MG TABLET PO SCH ×2 (08:12→21:39)
--- NOTE | 2022-11-23 12:50 | NUR ---
Spoke to pt's son, KEYSHAWN Meis [phone], for 15 minutes, updated KulwinderKulwinder on pt's plan of care. Notified of last 2 days of progress and discussed placement options that KEYSHAWN had also discussed with Odin Kramer [employer]. Son will call medicare to see how far they are willing to take his mom when she leaves the hospital. Son would prefer her to be in the [place] close to him at [facility].
[2022-11-23 15:25] VITALS: BP 125/77
--- NOTE | 2022-11-23 18:22 | NUR ---
Pt had a bout of CONFUSION and DISORIENTATION. She asked me to get her 2 candles from her living room. She said, "They are just there in the next room." I tried to reorient her to being in the hospital, "You are at the hospital, there is no living room here." "We don't have candles here." She repeatedly and angrily insisted that I get them for her. Finally, I agreed to get them and she seemed comforted by that.
[2022-11-23 20:00] VITALS: BP 130/70
[2022-11-23] MEDS: TEMAZEPAM 7.5 MG CAPSULE PO PRN (22:56)
--- NOTE | 2022-11-23 23:00 | NUR ---
1910- The patient is AOx2 and the patient tolerates medications. The patient has no IV access. Fall precautions maintain. Call light within reach, two side rails up, wheels locked, bed alarm on. All needs attended. The patient has a left ng wound that is clean, dry, and intact. Will continue to monitor throughout the shift. 2100- The patient request for an extra pillow. Item is given to the patient. The patient has no complains of pain or sob. Will continue to monitor throughout the shift. 0000- The patient request for a warm balnket. Item is given to the patient. The patient has no complains of pain or sob. Will continue to monitor throughout the shift. 0400- The patient is resting comfortably and asleep. Left ng wound is clean, dry, and intact. The patient has no complains of pain or sob. Will continue to monitor throughout the shift.
[2022-11-24] MEDS: LEVOTHYROXINE SODIUM 112 MCG TABLET PO SCH (06:18)
[2022-11-24] MEDS: ENSURE WITH FIBER 237 ML LIQUID (CHOCOLATE) PO SCH (08:30)
[2022-11-24] MEDS: LIDOCAINE 5% PATCH TD SCH (09:35)
[2022-11-24] MEDS: THERAHONEY GEL 1.5 OZ TUBE TOP SCH (09:35)
[2022-11-24] MEDS: ARGININE/GLUTAMINE/CALCIUM BMB 1 EACH POWD.PACK PO SCH ×2 (09:35→16:35)
[2022-11-24] MEDS: DOCUSATE SODIUM 100 MG CAPSULE PO SCH ×2 (09:35→16:34)
[2022-11-24] MEDS: FAMOTIDINE 20 MG TABLET PO SCH ×2 (09:35→16:35)
[2022-11-24] MEDS: METOPROLOL TARTRATE 50 MG TABLET PO SCH ×2 (09:47→22:47)
[2022-11-24] MEDS: LORAZEPAM 0.5 MG TABLET PO PRN (11:34)
[2022-11-24 15:47] VITALS: BP 117/72
--- NOTE | 2022-11-24 19:06 | NUR ---
Patient is alert and confused at time screaming on and off. When ask about pain patient denied any pain. Refused wound care treatment, barely eat any of her meals. Takes oxygen off while O2 saturation drops without oxygen on. Patient encouraged and explained the importance of O2 therapy close supervision maintained.
[2022-11-24] MEDS: TEMAZEPAM 7.5 MG CAPSULE PO PRN (22:47)
--- NOTE | 2022-11-24 23:00 | NUR ---
1905- The patient is AOx2 and the patient tolerates medications. The patient has no IV access. Fall precautions maintain. Call light within reach, two side rails up, wheels locked, bed alarm on. All needs attended. The patient has a left ng wound that is clean, dry, and intact. Will continue to monitor throughout the shift. 2200- The patient request for an extra blanket. Item is given to the patient. The patient has no complains of pain or sob. Will continue to monitor throughout the shift. 0000- Try to do a dressing changed on the left ng. Educated the patient on the importance of changing the dressing. The patient refused. Will continue to monitor throughout the shift. 0500- The patient is resting comfortably and asleep. Left ng wound is clean, dry, and intact. The patient has no complains of pain or sob. Will continue to monitor throughout the shift.
[2022-11-25] MEDS: LORAZEPAM 0.5 MG TABLET PO PRN (00:02)
[2022-11-25] MEDS: TRAMADOL HCL 50 MG TABLET PO PRN (00:02)
[2022-11-25] MEDS: LEVOTHYROXINE SODIUM 112 MCG TABLET PO SCH (06:23)
[2022-11-25 08:00] VITALS: BP 115/73
[2022-11-25] MEDS: ENSURE WITH FIBER 237 ML LIQUID (CHOCOLATE) PO SCH (08:30)
[2022-11-25] MEDS: FAMOTIDINE 20 MG TABLET PO SCH (09:19)
[2022-11-25] MEDS: ARGININE/GLUTAMINE/CALCIUM BMB 1 EACH POWD.PACK PO SCH (09:19)
[2022-11-25] MEDS: DOCUSATE SODIUM 100 MG CAPSULE PO SCH (09:19)
[2022-11-25] MEDS: LIDOCAINE 5% PATCH TD SCH (09:19)
[2022-11-25] MEDS: ACETAMINOPHEN 325 MG TABLET PO PRN (09:20)
[2022-11-25] MEDS: THERAHONEY GEL 1.5 OZ TUBE TOP SCH (09:20)
[2022-11-25 09:25] VITALS: BP 138/78
[2022-11-25] MEDS: METOPROLOL TARTRATE 50 MG TABLET PO SCH (09:25)
--- NOTE | 2022-11-25 16:52 | NUR ---
Patient is discharge to [facility]. Report given to admitting RN. Patient left unit with ambulance crew members via [facility], her son also with her she is alert and verbal in no distress. All personal belongings picked up by patient's son.
== END 2022-11-25 16:40 | DRG 947 ==
PROVIDERS: ADMIT Physical Medicine & Rehabilitation Pain Medicine; ATTEND Physical Medicine & Rehabilitation Pain Medicine
DX: R53.1 Weakness (principal); N17.0 Acute kidney failure with tubular necrosis; E44.0 Moderate protein-calorie malnutrition; I13.0 Hypertensive heart and chronic kidney disease with heart failure and stage 1 through stage 4 chronic kidney disease, or unspecified chronic kidney disease; I48.20 Chronic atrial fibrillation, unspecified; I69.351 Hemiplegia and hemiparesis following cerebral infarction affecting right dominant side; D64.9 Anemia, unspecified; E03.9 Hypothyroidism, unspecified; I50.9 Heart failure, unspecified; I27.20 Pulmonary hypertension, unspecified; I25.10 Atherosclerotic heart disease of native coronary artery without angina pectoris; K57.30 Diverticulosis of large intestine without perforation or abscess without bleeding; J44.9 Chronic obstructive pulmonary disease, unspecified; I73.9 Peripheral vascular disease, unspecified; M19.90 Unspecified osteoarthritis, unspecified site; N18.9 Chronic kidney disease, unspecified; Z96.641 Presence of right artificial hip joint; Z95.2 Presence of prosthetic heart valve; Z95.0 Presence of cardiac pacemaker; G89.29 Other chronic pain; D69.2 Other nonthrombocytopenic purpura; I07.1 Rheumatic tricuspid insufficiency; I25.2 Old myocardial infarction; I45.10 Unspecified right bundle-branch block; I89.0 Lymphedema, not elsewhere classified; K59.00 Constipation, unspecified; K83.8 Other specified diseases of biliary tract; M89.8X9 Other specified disorders of bone, unspecified site; Z20.822 Contact with and (suspected) exposure to COVID-19; Z66 Do not resuscitate; Z79.01 Long term (current) use of anticoagulants; Z79.02 Long term (current) use of antithrombotics/antiplatelets; Z85.3 Personal history of malignant neoplasm of breast; Z87.891 Personal history of nicotine dependence; Z88.2 Allergy status to sulfonamides; F01.A0 Vascular dementia, mild, without behavioral disturbance, psychotic disturbance, mood disturbance, and anxiety; Z90.49 Acquired absence of other specified parts of digestive tract; Z90.710 Acquired absence of both cervix and uterus; Z88.6 Allergy status to analgesic agent; Z88.5 Allergy status to narcotic agent; S81.812A Laceration without foreign body, left lower leg, initial encounter; X58.XXXA Exposure to other specified factors, initial encounter; Y93.9 Activity, unspecified; Y92.89 Other specified places as the place of occurrence of the external cause
CPT/HCPCS: 36415; 83735; 84100; 85025; 97535-GO-CO; A4663; A6209; A6213; J2405